=== PATIENT | female | born 1970 | race Caucasian/White ===

== ENCOUNTER 2020-08-28 08:12 | Emergency (ER) | payer OTHER ==
[~2020-08-28] VITALS: Ht 162.6 cm; Wt 189.6 kg
[2020-08-28 08:25] VITALS: Ht 162.6 cm; Wt 189.6 kg
[2020-08-28 09:02] LABS: BASOPHIL % 1.1 % (0-2); PLATELET COUNT 245 x10^3mcL (130-400)
[2020-08-28 09:04] LABS: RED CELL DISTRIBUTION WIDTH 17.5 % (11.5-14.5)
[2020-08-28 09:16] LABS: CALCIUM 8.2 mg/dL (8.5-10.1); CARBON DIOXIDE 27.4 mmol/L (21-32); CHLORIDE SERUM 103 mmol/L (98-107); CREATININE SERUM 0.9 mg/dL (0.6-1.0); GFR1 > 60 mL/min; GLUCOSE SERUM 139 mg/dL (74-106); POTASSIUM SERUM 3.2 mmol/L (3.5-5.1); SODIUM SERUM 140 mmol/L (136-145)
[2020-08-28 09:21] LABS: ALKALINE PHOSPHATASE 60 U/L (46-116); ALT/SGPT 19 U/L (14-59); AST/SGOT 28 U/L (15-37); BILIRUBIN TOTAL 0.5 mg/dL (0.20-1.00); TOTAL PROTEIN, SERUM 6.3 g/dL (6.4-8.2)
[2020-08-28 11:09] VITALS: BP 129/69
== END 2020-08-28 12:03 | disposition home or self-care (01) ==
LOC: ED 08:12
PROVIDERS: Emergency Medicine
DX: N93.9 Abnormal uterine and vaginal bleeding, unspecified (principal); I10 Essential (primary) hypertension; R42 Dizziness and giddiness; Z88.2 Allergy status to sulfonamides
CPT/HCPCS: J7030